=== PATIENT | female | born 1985 | race Caucasian/White ===

== ENCOUNTER 2017-06-01 07:04 | Emergency (ER) | payer SELFPAY ==
[~2017-06-01] VITALS: Ht 162.6 cm; Wt 59.0 kg
[~2017-06-01 07:04] MED LIST: TRAM50TA2 PO
[2017-06-01] MEDS ORDERED: fentaNYL INJECTION 100 MCG/2 ML AMP IVP STA ×3 (07:19→10:12)
[2017-06-01 07:30] LABS: BASOPHILS # (AUTO) 0.1 10^3/uL (0.0-0.1); BASOPHILS % (AUTO) 1 % (0-10); EOSINOPHILS # (AUTO) 0.3 10^3/uL (0.0-0.3); EOSINOPHILS % (AUTO) 3 % (0-10); LYMPHOCYTES # (AUTO) 2.8 X 10^3 (1.0-4.0); LYMPHOCYTES % (AUTO) 26 % (12-44); MEAN CORPUSCULAR HEMOGLOBIN 30 PG (25-34); MEAN CORPUSCULAR HGB CONC 33 G/DL (32-36); MEAN CORPUSCULAR VOLUME 90 FL (80-99); MEAN PLATELET VOLUME 8.8 FL (7.4-10.4); MONOCYTES # (AUTO) 0.8 X 10^3 (0.0-1.0); MONOCYTES % (AUTO) 7 % (0-12); NEUTROPHILS # (AUTO) 6.8 X 10^3 (1.8-7.8); NEUTROPHILS % (AUTO) 62 % (42-75); PLATELET COUNT 676 10^3/uL (130-400); RED BLOOD COUNT 3.82 10^6/uL (4.35-5.85); RED CELL DISTRIBUTION WIDTH 14.3 % (10.0-14.5); WHITE BLOOD COUNT 10.9 10^3/uL (4.3-11.0)
[2017-06-01 07:48] LABS: ALANINE AMINOTRANSFERASE 16 U/L (0-55); ALBUMIN 3.7 GM/DL (3.2-4.5); ANION GAP 13 MMOL/L (5-14); ASPARTATE AMINO TRANSFERASE 16 U/L (5-34); BILIRUBIN,TOTAL 0.3 MG/DL (0.1-1.0); BLOOD UREA NITROGEN 12 MG/DL (7-18); BUN/CREATININE RATIO 17; CALCIUM 9.4 MG/DL (8.5-10.1); CARBON DIOXIDE 19 MMOL/L (21-32); CHLORIDE 106 MMOL/L (98-107); CREATININE SERUM 0.72 MG/DL (0.60-1.30); GFR ESTIMATED > 60; GLUCOSE 90 MG/DL (70-105); POTASSIUM 4.2 MMOL/L (3.6-5.0); SODIUM 138 MMOL/L (135-145); TOTAL PROTEIN 7.6 GM/DL (6.4-8.2); hs C REACTIVE PROTEIN 0.16 MG/DL (0.00-0.50)
[2017-06-01] MEDS ORDERED: NS IV 1000 ML 1,000 ML IV ONE (07:49)
--- NOTE | 2017-06-01 07:51 | Diagnostic Imaging Report ---
EXAM: CHEST PA/LAT (2 VIEW) INDICATION: Chest pain. Shortness of breath. COMPARISON: None. FINDINGS: Normal heart size and pulmonary vascularity. Consolidation in the left lung base probable left pleural effusion. No other focal pulmonary opacity. No pneumothorax. No acute osseous findings. Cholecystectomy clips. IMPRESSION: Small left pleural effusion and consolidation in the left lung base. Dictated by: Dictated on workstation # [id number]
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
[2017-06-01] MEDS ORDERED: IOHEXOL 350 MG/ML 100 ML (OMNIPAQUE 350) VIAL IV ONE (08:00)
[2017-06-01] MEDS ORDERED: NS 100 ML (IVPB) BAG IV ONE (08:00)
[2017-06-01 08:47] LABS: BILIRUBIN,URINE NEGATIVE (NEGATIVE); KETONES,URINE NEGATIVE (NEGATIVE); LEUKOCYTE ESTERASE ,URINE 1+ (NEGATIVE); NITRITE,URINE NEGATIVE (NEGATIVE); PH,URINE 5 (5-9); PROTEIN,URINE 1+ (NEGATIVE); UROBILINOGEN,URINE NORMAL (NORMAL)
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
[2017-06-01 09:00] LABS: SQUAMOUS EPITHELIAL CELL,UR 25-50 /HPF
[2017-06-01 09:01] LABS: YEAST,URINE FEW /HPF
[2017-06-01] MEDS ORDERED: KETOROLAC 30 MG/ML VIAL IVP STA (09:35)
[2017-06-01] MEDS ORDERED: CEFEPIME INJECTION 2,000 MG in NS (IVPB) 50 ML IV ONE (10:15)
[2017-06-01] MEDS ORDERED: VANCOMYCIN INJECTION 1,000 MG in NS (IVPB) 250 ML IV ONE (11:00)
[2017-06-01 11:19] VITALS: BP 128/79
== END 2017-06-01 11:19 | disposition short-term general hospital (02) ==
LOC: EDUNIT# 07:04 → ER 07:05
DX: J43.9 Emphysema, unspecified (principal)
CPT/HCPCS: 36415; 71020; 71260; 74160; 80053; 80306; 81000; 85025; 86141; 87040; 96361; 96365; 96375; 96376